=== PATIENT | female | born 1950 | race Caucasian/White ===

== ENCOUNTER 2021-07-13 11:49 | Emergency (ER) | payer MEDICARE, SELFPAY ==
[2021-07-13 12:00] VITALS: BP 134/87; PULSE 80; RESP 16; TEMP 35.8; O2SAT 96
--- NOTE | 2021-07-13 12:47 | ED.FEMALEGU ---
HPI - Female Genitourinary General Chief complaint: Urogenital-Female Stated complaint: Frequent/Burning Urination Source: patient and RN notes reviewed Limitations: no limitations History of Present Illness HPI Narrative: The patient, on routine meds, presents with urinary symptoms. Patient notes a shorter couple day history of typical urinary frequency/urgency/dysuria. No blood, fever, low back pain, vomiting/diarrhea, discharge. Symptoms are mild, worse with micturition, like prior episode within the last year. Related Data Home Medications Medication Instructions Recorded Confirmed levothyroxine 100 mcg PO DAILY 07/13/21 07/13/21 lisinopril 10 mg PO DAILY 07/13/21 07/13/21 Allergies Allergy/AdvReac Type Severity Reaction Status Date / Time No Known Allergies Allergy Verified 07/13/21 11:57 Review of Systems Review of Systems: General/Constitutional: No weight loss,fever Eyes: N0: Redness,discharge Ears/Nose/Throat: No: Epistaxis,ear discharge Respiratory: Denies: Hemoptysis Gastrointestinal: No Vomiting, Bleeding-rectal Skin: No Lumps, eruption Neurologic: No Focal Weakness,Sz Hematologic: Denies: Petechiae/Purpura Psychiatric: No: Suicida ideationl All Other Systems: Reviewed and Negative PMFSH Comments At time of signature, agree with nursing past medical, surgical, social and family history. There is no relevant family history pertinent to the presenting complaint Exam Narrative: General Appearance: Well appearing, No distress,, Conjunctiva clear Ears: External ear normal Nose: Normal nose Mouth/Throat: Normal appearing, Normal lips, Supple Respiratory: Airway patent, No respiratory distress Cardiovascular: RRR Abdomen: Soft, Non-tender,no CVAT Musculoskeletal: Full ROM Skin: Warm, Dry Neurological: A&O x3, CN II-X intact Psychiatric: Normal mood, Normal affect Course Vital Signs Vital signs: Vital Signs Temperature 96.5 F L 07/13/21 12:00 Pulse Rate 80 07/13/21 12:00 Respiratory Rate 16 07/13/21 12:00 Blood Pressure 134/87 07/13/21 12:00 Pulse Oximetry 96 07/13/21 12:00 Temperature 96.5 F L 07/13/21 12:00 Pulse Rate 80 07/13/21 12:00 Respiratory Rate 16 07/13/21 12:00 Blood Pressure 134/87 07/13/21 12:00 Pulse Oximetry 96 07/13/21 12:00 MDM - Female Genitourinary Lab Data Labs: Urine Glucose Trace Reference Range: Negative Urine Bilirubin Negative Reference Range: Negative Urine Ketone Trace Reference Range: Negative Urine Specific [place] 1.010 Reference Range:1.001-1.035 Urine Blood Negative Reference Range: Negative * * Urine pH 6.0 Reference Range: 5.0-9.0 Urine Protein 1+ Reference Range: Negative Urine Urobilinogen 2.0 Reference Range: 0.2-1.0 Urine Nitrate Positive Reference Range: Negative Urine Leukocyte 3+ Reference Range: Negative Urine Color [place] Reference Range: Yellow Urine Characteristics Clear Discharge Plan Discharge Clinical Impression: Urinary tract infection Qualifiers: Urinary tract infection type: acute cystitis Hematuria
== END 2021-07-13 12:52 | disposition home or self-care (01) ==
PROVIDERS: Emergency Provider Emergency Medicine
DX: N30.00 Acute cystitis without hematuria (principal); I10 Essential (primary) hypertension; E03.9 Hypothyroidism, unspecified
CPT/HCPCS: 81003; 87086; 99213; G0463